=== PATIENT | male | born 1955 | race Caucasian/White ===

== ENCOUNTER 2017-02-21 11:56 | Inpatient (IN) | payer BC ==
--- NOTE | ~2017-02-21 | HP ---
History And Physical [id number] [place]. [address] NAME: KURT AMAYA : 55 STATUS : ADM IN [facility]#: [id number] AGE: 61 ADM/REG DATE : 02/21/17 MR#: [id number] REPORT SERV DATE: 02/21/17 DICTATED BY: ANDREWS DAWN JR. DATE: 02/21/17 REPORT STATUS : Draft TRANSCRIBED BY: ALBERT DATE: 02/21/17 DATE OF ADMISSION: 02/21/2017 CHIEF COMPLAINT: Chest pain. HISTORY OF PRESENT ILLNESS: Kurt Amaya is a 61-year-old white male, unemployed, smoker, and alcoholic, who developed substernal chest pain that was retrosternal burning with associated shortness of breath and malaise at 04:30 on 02/20/2017. He did not seek medical attention for unclear reasons. He did go to the [facility] this morning in an attempt to seek help as his chest pain persisted throughout the night and there he had an EKG performed revealing inferoposterior NJ with Q-wave formation in the inferior leads. The patient continued to have 4 or 5/10 precordial chest pain and a code STEMI was employed with a field call. On arrival, the patient had chest pain of 4/10 after 4 mg of IV morphine and he was taken urgently to the catheterization laboratory for emergent angiography and coronary intervention. He denied precordial chest pain prior to yesterday. He denied palpitations, syncope, or near syncope. PAST MEDICAL HISTORY: Prior history of dysthymia and anxiety. He denies hypertension, hyperlipidemia, prior TIA, or stroke. He denies diabetes or history of renal insufficiency. He denies peptic ulcer disease. ALLERGIES: DENIED. CURRENT MEDICATIONS: Wellbutrin. SOCIAL HISTORY: The patient is a half to one pack a day smoker. The patient drinks 2 L plus of Tequila weekly. He denies recreational drug abuse. FAMILY HISTORY: Negative for early or mid life vascular events. REVIEW OF SYSTEMS: He denies fever or chills, bleeding diathesis, sudden weight gain or weight loss. Remainder as in HPI or negative. PHYSICAL EXAMINATION: VITAL SIGNS: Blood pressure was 82/48, heart rate 70, respirations 16. GENERAL: Overweight male, who is uncomfortable and in mild distress. HEENT: Anicteric, no scleral injection, no oral lesions. NECK: No JVD, supple, no bruits. LUNGS: Hyperexpanded, mostly clear. CARDIOVASCULAR: Irregular rate and rhythm with distant heart sounds. ABDOMEN: Soft, nontender. Normoactive bowel sounds, no hepatosplenomegaly. EXTREMITIES: No clubbing, cyanosis or edema. SKIN: No visible rashes. NEURO/PSY: Normal affect, alert and oriented x 3. History And Physical [address] [address] NAME: KURT AMAYA : 55 STATUS : ADM IN [facility]#: [id number] AGE: 61 ADM/REG DATE : 02/21/17 MR#: [id number] REPORT SERV DATE: 02/21/17 DICTATED BY: ANDREWS DAWN JR. DATE: 02/21/17 REPORT STATUS : Draft TRANSCRIBED BY: ALBERT DATE: 02/21/17 MEDICAL DECISION MAKIN. Late presentation inferoposterior myocardial infarction. The patient continues to have significant precordial chest discomfort consistent with ongoing injury. The patient will be taken emergently to the catheterization laboratory for emergent coronary angiography and percutaneous intervention. The risks were verbally explained and verbally accepted. 2. Tobacco cessation. Counseling was initiated. 3. Mixed hyperlipidemia. We will initiate intensive statin therapy. 4. Alcohol abuse. The patient will need delirium tremens prophylaxis during this hospital stay. IVETH/ALBERT Andrews Dawn Jr., M.D. / [id number] CC: Andrews Dawn Jr., M.D.
--- NOTE | ~2017-02-21 | CN ---
Consultation Report [facility] [address] [place]. [address] NAME: RICKY LARIOS : 55 STATUS : ADM IN PAT#: [id number] AGE: 61 ADM/REG DATE : 02/21/17 MR#: [id number] REPORT SERV DATE: 02/22/17 DICTATED BY: RAHUL CALDWELL DATE: 02/22/17 REPORT STATUS : Draft TRANSCRIBED BY: MODL DATE: 02/22/17 INTERNAL MEDICINE CONSULTATION DATE OF CONSULTATION: 02/22/2017 REASON FOR CONSULTATION: Alcohol withdrawal management. HISTORY OF PRESENT ILLNESS: This is a 61-year-old obese male, who has a known history of dysthymia, anxiety, on Wellbutrin. He denied any history of hypertension, hyperlipidemia, prior stroke, or TIA. No known history of diabetes, renal insufficiency. He is a known alcoholic, drinking about two one-fifth of Tequila per week, and he stocks beer, and he praise for his friends to come over and drink with him, but only drinks about 2 L of Tequila per week, unclear proof. The patient has never had DTs before. Currently, does not have any withdrawal symptoms of agitation, diaphoresis, sweats, tachycardia, or hallucinations, understands, will receive Ativan, wants to stop drinking and smoking at this time. As a result, he is amenable to outpatient Librium and Ativan weaning protocol. Denies any fevers, chills, nausea, vomiting, did have diarrhea with a STEMI. No chest pain. Currently, no chest pressure. Some mild shortness of breath. The patient came in initially to Cardiac Service with a Code STEMI, with a signs of inferoposterior acute coronary syndrome. Troponin peaked above 120. LVEF thought to be 30% to 35%, had angiogram which showed moderate mid LAD stenosis, decreased systolic function, inferior akinesis, LVEDP 22. As a result, he had an Angiojet thrombectomy and bare metal stent placement to mid RCA. He had an echo that showed 30% to 35% decreased systolic function, moderate inferoseptal focal and apical hypokinesis, mildly dilated right ventricle, moderately decreased function. No valvulopathy was noted. The patient is doing well at this time. Dual antiplatelets with prasugrel and aspirin. Lipitor, lisinopril, and atorvastatin stated. PAST MEDICAL HISTORY: See above. PAST SURGICAL HISTORY: See above. ALLERGIES: NO KNOWN DRUG ALLERGIES. SOCIAL HISTORY: At least a [id number] history of active smoking, as stated about 2 L of Tequila per week, last drink was on . No drug use. Unemployed, lives at home. FAMILY HISTORY: Hypertension, at least one parent. Consultation Report [address] [place]. [address] NAME: RICKY LARIOS : 55 STATUS : ADM IN [facility]#: [id number] AGE: 61 ADM/REG DATE : 02/21/17 MR#: [id number] REPORT SERV DATE: 02/22/17 DICTATED BY: RAHUL CALDWELL DATE: 02/22/17 REPORT STATUS : Draft TRANSCRIBED BY: ALBERT DATE: 02/22/17 REVIEW OF SYSTEMS: Done, see HPI. Otherwise, negative. OBJECTIVE: VITAL SIGNS: 141/76, currently 109/73, pulse is 73, afebrile, respirations of 16. GENERAL: No acute distress. HEENT: PERRLA. No scleral icterus. CARDIOVASCULAR: Regular rate and rhythm. No murmur at this time. RESPIRATORY: Decreased breath sounds bibasilarly. ABDOMEN: Nontender, nondistended. Positive bowel sounds. EXTREMITIES: No edema. No ecchymosis. NEURO: A and O x4/4. GCS of 15. PSYCH: Mildly anxious. LABORATORIES: White count at 15.2 from 13.9, hemoglobin 13.8 from 13.3, platelets 214,000. Troponin 123 from 36. CPK 4300 from 3049. Sodium 138, 4.1 potassium, 104 chloride, BUN 17, 0.96 creatinine, glucose 122 from 142. IMPRESSION AND RECOMMENDATION: 1. Alcohol withdrawal prevention. 2. Smoking cessation. 3. Mild acute respiratory failure, hypoxia, likely clinical chronic obstructive pulmonary disease. 4. Systemic inflammatory response syndrome criteria. PLAN: Thank very much this consultation. Given his risk of DTs occurring more than 48 to 72 hours after last drink, last drink was last , we have empirically started on Librium 20 p.o. t.i.d. first dose now, then Ativan 1 to 2 mg IV q.2h p.r.n. for classic symptoms being agitation, tremors, hallucinations, and signs of tachyarrhythmia, unexplained as well as diaphoresis. The patient is amenable to stopping altogether as a result, will need Librium and Ativan likely as an outpatient. Placed him on Wellbutrin for smoking cessation as well and anxiety. Get a procalcitonin regarding his SIRS criteria. It is likely just reactive leukocytosis. Consider possible urine drug screen. If does not have any cocaine, could consider addition of beta blockade, but we would defer to his transfer controller. We will get an A1c regarding some hyperglycemia of 142, and Spiriva for clinical COPD if the patient is still oxygen dependent. All questions were answered. It took well over 60 minutes to do. Reference [employer] and [employer] and we will follow along with you. Okay to the floor. Consultation Report [id number] [place]. [address] NAME: RICKY LARIOS : 55 STATUS : ADM IN [facility]#: [id number] AGE: 61 ADM/REG DATE : 02/21/17 MR#: [id number] REPORT SERV DATE: 02/22/17 DICTATED BY: RAHUL CALDWELL DATE: 02/22/17 REPORT STATUS : Draft TRANSCRIBED BY: ALBERT DATE: 02/22/17 MADDI/ALBERT Rahul Caldwell DO / [id number] CC: Yunior Dawn Jr., M.D.
--- NOTE | ~2017-02-21 | DS ---
Discharge Summary [facility] [address] [facility] [place]. [address] NAME: RICKY LARIOS : 55 STATUS : DIS IN PAT#: [id number] AGE: 61 ADM/REG DATE : 02/21/17 MR#: [id number] REPORT SERV DATE: 03/06/17 DICTATED BY: ANDREWS DAWN JR. DATE: 03/05/17 REPORT STATUS : Draft TRANSCRIBED BY: ALBERT DATE: 03/05/17 Data Collection from hospitalization DISCHARGE DIAGNOSES: 1. Inferoposterior myocardial infarction. 2. Acute systolic congestive heart failure. 3. Mixed hyperlipidemia. 4. Dysrhythmia. 5. Nicotine dependence. 6. EtOH abuse. 7. Hypotension. 8. Anxiety. CONSULTATIONS: Ivan Lnych DO PROCEDURES PERFORMED: Cardiac catheterization and percutaneous coronary intervention on 02/21/2017. MEDICATIONS: Aspirin 81 mg daily, Lipitor 40 mg at bedtime, Wellbutrin XL 300 mg daily, Coreg 3.125 mg twice a day as instructed, Librium 10 mg twice a day as needed, Colace 100 mg twice a day, Prinivil 5 mg daily, Effient 10 mg daily, and Aldactone 12.5 mg daily. CONDITION AT DISCHARGE: Stable. DISPOSITION: The patient was discharged home on a low-sodium, low-cholesterol diet with activities as instructed. He would follow up with me on 04/08/2017. He would follow up with Dr. Terrie Mitchell as instructed. HOSPITAL COURSE: This is a 61-year-old man who is a smoker and is an alcoholic, who developed substernal chest pain that was retrosternal and burning, it was associated with shortness of breath and malaise, this occurred at 4:30 a.m. on 02/20/2017. He did not seek medical attention for unclear reasons. He did go to the [facility] on the morning of this admission in an attempt to seek help as his chest pain persisted throughout the night. He was found to have an EKG, which revealed inferoposterior myocardial infarction with Q-wave formation in the inferior leads. The patient continued to have 4 or 5/10 precordial chest pain and a code STEMI was employed with a field call. On arrival, the patient had chest pain of 4/10 after 4 mg of IV morphine and he was going to be taken emergently to the cardiac film laboratory technician to undergo emergent angiography and coronary intervention. He had denied any precordial chest pain prior to 02/20/2017. He was admitted at this time for further evaluation and treatment. Upon admission, he was taken to the cardiac film laboratory technician where he underwent the above-mentioned procedure. He tolerated this well, and there were no complications. The following day, he was seen by Dr. Ivan Lynch regarding alcohol withdrawal management. The patient denies any history of hypertension, hyperlipidemia, prior stroke, or TIA. He has no history of diabetes or renal insufficiency. He is a known alcoholic and drinks about two one sip of tequila per week. He said he drinks about 2 liters of Tequila per week, unclear proof. The patient had never had DTs before. Currently, he did not have any withdrawal symptoms of Discharge Summary [address] [address] NAME: RICKY LARIOS : 55 STATUS : DIS IN PAT#: [id number] AGE: 61 ADM/REG DATE : 02/21/17 MR#: [id number] REPORT SERV DATE: 03/06/17 DICTATED BY: ANDREWS DAWN JR. DATE: 03/05/17 REPORT STATUS : Draft TRANSCRIBED BY: ALBERT DATE: 03/05/17 agitation, diaphoresis, sweats, tachycardia, or hallucination. He was going to receive Ativan. He said he wants to stop drinking and smoking at this time. As a result, he was amenable to outpatient Librium and Ativan weaning protocol. He was started empirically on Librium and Ativan. It was felt that he would likely need this as an outpatient. He was placed on Wellbutrin for smoking cessation as well as anxiety. Procalcitonin level was going to be checked. Hemoglobin A1c was going to be obtained regarding some of his hyperglycemia. We would consider a possible urine drug screen if he did not have any cocaine, we could consider the addition of beta blockade, this would be deferred to the machine fitter. On 02/23/2017, he had no chest pain. His lungs were clear bilaterally. He does have an ejection fraction of 30%-35%. It was felt that he would need a LifeVest. Aldactone was added to his regimen. Bradycardia/AV block had resolved. Low-dose Coreg was added. Statin agent was continued. We encouraged him to stop smoking and drinking. The following day, he had some asymptomatic hypotension. He had no edema. Discharge planning was performed. He was in a sinus rhythm on telemetry. He had no bradycardia. Later in the day, lisinopril was increased. On 02/25/2017, he felt well. He was wanting to be discharged. His lungs were clear. Librium was going to be continued. He has had some dizziness which improved with decrease in Librium. LifeVest was going to be applied. Discharge instructions were given. Due to his improved and stable condition, he was discharged home with the above-stated instructions. Information collected by: Rina Damico I submit the above information as my discharge summary. ALYSHA/ALBERT Andrews Dawn Jr., M.D. / [id number] CC: Andrews Dawn Jr., M.D.
[~2017-02-21 11:56] MED LIST: *DENIES; MELA3 PO; MULTIVITAMI1 PO; PERCOCET1 TA4 PO; TUMERIC; WELLXL300
[2017-02-21 12:13] LABS: CREATININE 0.9 MG/DL (0.70-1.30)
[2017-02-21 12:14] LABS: BASOPHILS 0.1 %; BASOPHILS ABSOLUTE 0.01 10/3/uL (0.0-0.16); EOSINOPHILS 0 %; HEMOGLOBIN 14.1 g/dL (13.6-17.8); IMMATURE GRANULOCYTES 0.5 %; IMMATURE GRANULOCYTES ABSOLUTE 0.08 10/3/uL (0.0-0.11); LYMPHOCYTES 7.7 %; MEAN CORPUS HGB CONC 33.6 g/dL (32.0-36.0); MEAN CORPUSCULAR HEMOGLOB 30.2 pg (26.0-34.0); MEAN CORPUSCULAR VOLUME 89.9 fL (80-100); MEAN PLATELET VOLUME 10.1 fL (9.2-13.0); MONOCYTES 8.7 %; MONOCYTES ABSOLUTE 1.36 10/3/uL (0.21-1.20); NEUTROPHILS ABSOLUTE 13.03 10/3/uL (2.02-8.40); PLATELET COUNT 234 10/3/uL (150-400); RBC DISTRIBUTION WIDTH 14.1 % (12.0-16.0); RED CELL COUNT 4.67 10/6/uL (4.7-6.1)
[2017-02-21 12:17] LABS: MANUAL DIFF NO %; WHITE BLOOD CELLS 15.7 10/3/uL (4.5-10.5)
[2017-02-21 12:27] LABS: INTERNATIONAL NORMAL RATI 1.1 UNITS (-); PROTIME (NOT ORD) 13.9 SEC (12.0-14.5)
[2017-02-21 12:29] LABS: CALCIUM, SERUM 8.9 MG/DL (8.5-10.4); CHLORIDE, SERUM 103 MMOL/L (96-112); CREATININE 1.07 MG/DL (0.70-1.30); GFR AFRICAN AMERICAN 86 ML/MIN (>=60); GFR NON AFRICAN AMERICAN 75 ML/MIN (>=60); POTASSIUM, SERUM 4.2 MMOL/L (3.5-5.3); SODIUM, SERUM 138 MMOL/L (135-148)
[2017-02-21 12:30] LABS: CO2 (CARBON DIOXIDE) 22 MMOL/L (24-34)
[2017-02-21 12:31] LABS: BUN (BLOOD UREA NITROGEN) 21 MG/DL (6-23); CHEST PAIN PROFILE TAT 0 Hrs 22 Mins; GLUCOSE, SERUM 142 MG/DL (60-99)
[2017-02-21 12:38] LABS: PARTIAL THROMBO TIME > 150.0 SEC (22.5-37.2)
[2017-02-21 15:08] LABS: CPK 3049 U/L (0-200)
[2017-02-21 15:22] LABS: CKMB INDEX (NOT ORD) 10.7
[2017-02-21 17:20] LABS: BASOPHILS 0.1 %; BASOPHILS ABSOLUTE 0.01 10/3/uL (0.0-0.16); EOSINOPHILS 0 %; HEMATOCRIT 40.4 % (40.0-51.0); HEMOGLOBIN 13.3 g/dL (13.6-17.8); IMMATURE GRANULOCYTES 0.4 %; IMMATURE GRANULOCYTES ABSOLUTE 0.05 10/3/uL (0.0-0.11); LYMPHOCYTES 11.9 %; LYMPHOCYTES ABSOLUTE 1.65 10/3/uL (0.67-4.30); MEAN CORPUS HGB CONC 32.9 g/dL (32.0-36.0); MEAN CORPUSCULAR HEMOGLOB 29.8 pg (26.0-34.0); MEAN CORPUSCULAR VOLUME 90.4 fL (80-100); MEAN PLATELET VOLUME 10.5 fL (9.2-13.0); MONOCYTES 10.5 %; MONOCYTES ABSOLUTE 1.46 10/3/uL (0.21-1.20); NEUTROPHILS 77.1 %; NEUTROPHILS ABSOLUTE 10.68 10/3/uL (2.02-8.40); PLATELET COUNT 230 10/3/uL (150-400); RBC DISTRIBUTION WIDTH 14.3 % (12.0-16.0); RED CELL COUNT 4.47 10/6/uL (4.7-6.1); WHITE BLOOD CELLS 13.9 10/3/uL (4.5-10.5)
[2017-02-21 17:25] LABS: MANUAL DIFF NO %
[2017-02-21 20:21] LABS: BASOPHILS 0.1 %; BASOPHILS ABSOLUTE 0.01 10/3/uL (0.0-0.16); EOSINOPHILS 0.1 %; EOSINOPHILS ABSOLUTE 0.01 10/3/uL (0.0-0.53); HEMATOCRIT 42.3 % (40.0-51.0); HEMOGLOBIN 13.6 g/dL (13.6-17.8); IMMATURE GRANULOCYTES 0.3 %; IMMATURE GRANULOCYTES ABSOLUTE 0.05 10/3/uL (0.0-0.11); LYMPHOCYTES 10.9 %; LYMPHOCYTES ABSOLUTE 1.72 10/3/uL (0.67-4.30); MEAN CORPUS HGB CONC 32.2 g/dL (32.0-36.0); MEAN CORPUSCULAR HEMOGLOB 29.6 pg (26.0-34.0); MEAN PLATELET VOLUME 10.4 fL (9.2-13.0); MONOCYTES 10.4 %; MONOCYTES ABSOLUTE 1.64 10/3/uL (0.21-1.20); NEUTROPHILS 78.2 %; NEUTROPHILS ABSOLUTE 12.35 10/3/uL (2.02-8.40); PLATELET COUNT 228 10/3/uL (150-400); RBC DISTRIBUTION WIDTH 14.4 % (12.0-16.0); WHITE BLOOD CELLS 15.8 10/3/uL (4.5-10.5)
[2017-02-21 20:23] LABS: MANUAL DIFF NO %
[2017-02-21 21:02] LABS: CK-MB 447.5 NG/ML
[2017-02-21 21:05] LABS: CKMB INDEX (NOT ORD) 7.9
[2017-02-22 05:16] LABS: BASOPHILS 0.1 %; BASOPHILS ABSOLUTE 0.02 10/3/uL (0.0-0.16); EOSINOPHILS 0.1 %; EOSINOPHILS ABSOLUTE 0.01 10/3/uL (0.0-0.53); HEMATOCRIT 41.5 % (40.0-51.0); HEMOGLOBIN 13.8 g/dL (13.6-17.8); IMMATURE GRANULOCYTES 0.3 %; IMMATURE GRANULOCYTES ABSOLUTE 0.05 10/3/uL (0.0-0.11); LYMPHOCYTES 13.9 %; LYMPHOCYTES ABSOLUTE 2.12 10/3/uL (0.67-4.30); MANUAL DIFF NO %; MEAN CORPUS HGB CONC 33.3 g/dL (32.0-36.0); MEAN CORPUSCULAR HEMOGLOB 30.3 pg (26.0-34.0); MEAN CORPUSCULAR VOLUME 91.2 fL (80-100); MEAN PLATELET VOLUME 10.3 fL (9.2-13.0); MONOCYTES 11.8 %; MONOCYTES ABSOLUTE 1.79 10/3/uL (0.21-1.20); NEUTROPHILS 73.8 %; NEUTROPHILS ABSOLUTE 11.22 10/3/uL (2.02-8.40); PLATELET COUNT 214 10/3/uL (150-400); RBC DISTRIBUTION WIDTH 14.1 % (12.0-16.0); RED CELL COUNT 4.55 10/6/uL (4.7-6.1); WHITE BLOOD CELLS 15.2 10/3/uL (4.5-10.5)
[2017-02-22 05:55] LABS: CALCIUM, SERUM 8.8 MG/DL (8.5-10.4); CHLORIDE, SERUM 104 MMOL/L (96-112); CHOLESTEROL 167 MG/DL (< 200); CK-MB 217.6 NG/ML; CO2 (CARBON DIOXIDE) 24 MMOL/L (24-34); CPK 4393 U/L (0-200); CREATININE 0.96 MG/DL (0.70-1.30); GFR AFRICAN AMERICAN 98 ML/MIN (>=60); GFR NON AFRICAN AMERICAN 85 ML/MIN (>=60); GLUCOSE, SERUM 122 MG/DL (60-99); HDL CHOLESTEROL 56 MG/DL (> 39); LDL CHOLESTEROL 74 MG/DL (< 130); NON-HDL CHOLESTEROL 111 MG/DL (< 160); POTASSIUM, SERUM 4.1 MMOL/L (3.5-5.3); SODIUM, SERUM 138 MMOL/L (135-148); TRIGLYCERIDE 188 MG/DL (< 150)
[2017-02-22 05:57] LABS: BUN (BLOOD UREA NITROGEN) 17 MG/DL (6-23)
[2017-02-22 12:21] LABS: CK-MB 121.8 NG/ML
[2017-02-22 12:22] LABS: CKMB INDEX (NOT ORD) 3.5
[2017-02-22 14:44] LABS: AMPHETAMINES (NOT ORD) NEG (NEG); BARBITURATES (NOT ORDERED NEG (NEG); BENZODIAZEPINES (NOT ORD) NEG (NEG); CANNABINOIDS (THC) NEG (NEG); COCAINE (NOT ORDERED) NEG (NEG); OPIATES POS (NEG); PHENCYCLIDINE(PCP) NEG (NEG); TRICYCLICS NEG (NEG)
[2017-02-22 14:50] LABS: PHOSPHORUS, SERUM 2.5 MG/DL (2.5-4.5)
[2017-02-22] MEDS ORDERED: WELLXL300 PO (14:52)
[2017-02-23 06:25] LABS: BASOPHILS 0.2 %; BASOPHILS ABSOLUTE 0.02 10/3/uL (0.0-0.16); EOSINOPHILS 0.3 %; EOSINOPHILS ABSOLUTE 0.03 10/3/uL (0.0-0.53); HEMATOCRIT 39.5 % (40.0-51.0); HEMOGLOBIN 13.2 g/dL (13.6-17.8); IMMATURE GRANULOCYTES 0.3 %; IMMATURE GRANULOCYTES ABSOLUTE 0.04 10/3/uL (0.0-0.11); LYMPHOCYTES 16.8 %; LYMPHOCYTES ABSOLUTE 1.97 10/3/uL (0.67-4.30); MEAN CORPUS HGB CONC 33.4 g/dL (32.0-36.0); MEAN CORPUSCULAR HEMOGLOB 30.3 pg (26.0-34.0); MEAN CORPUSCULAR VOLUME 90.6 fL (80-100); MEAN PLATELET VOLUME 10.6 fL (9.2-13.0); MONOCYTES 12.8 %; NEUTROPHILS 69.6 %; NEUTROPHILS ABSOLUTE 8.15 10/3/uL (2.02-8.40); PLATELET COUNT 203 10/3/uL (150-400); RBC DISTRIBUTION WIDTH 13.8 % (12.0-16.0); RED CELL COUNT 4.36 10/6/uL (4.7-6.1); WHITE BLOOD CELLS 11.7 10/3/uL (4.5-10.5)
[2017-02-23 06:26] LABS: MANUAL DIFF NO %
[2017-02-23 06:40] LABS: A/G RATIO 1.1 (0.7-1.9); ALBUMIN 3.3 G/DL (3.5-5.0); ALKALINE PHOSPHATASE 81 U/L (45-117); BUN (BLOOD UREA NITROGEN) 15 MG/DL (6-23); CALCIUM, SERUM 8.8 MG/DL (8.5-10.4); CHLORIDE, SERUM 103 MMOL/L (96-112); CO2 (CARBON DIOXIDE) 24 MMOL/L (24-34); CREATININE 0.96 MG/DL (0.70-1.30); GFR AFRICAN AMERICAN 98 ML/MIN (>=60); GFR NON AFRICAN AMERICAN 85 ML/MIN (>=60); GLOBULIN 3.1 G/DL (2.5-4.1); GLUCOSE, SERUM 98 MG/DL (60-99); PHOSPHORUS, SERUM 2.5 MG/DL (2.5-4.5); POTASSIUM, SERUM 3.7 MMOL/L (3.5-5.3); SGOT(AST) 221 U/L (5-40); SGPT(ALT) 72 U/L (5-65); SODIUM, SERUM 138 MMOL/L (135-148); TOTAL BILIRUBIN 0.6 MG/DL (0-1.2); TOTAL PROTEIN 6.4 G/DL (6.0-8.5)
[2017-02-23 07:13] LABS: PROCALCITONIN 0.05 ng/mL (<0.5)
[2017-02-24 05:32] LABS: BASOPHILS 0.3 %; BASOPHILS ABSOLUTE 0.03 10/3/uL (0.0-0.16); EOSINOPHILS 0.7 %; EOSINOPHILS ABSOLUTE 0.08 10/3/uL (0.0-0.53); HEMOGLOBIN 11.7 g/dL (13.6-17.8); IMMATURE GRANULOCYTES 0.4 %; IMMATURE GRANULOCYTES ABSOLUTE 0.04 10/3/uL (0.0-0.11); LYMPHOCYTES 17.2 %; LYMPHOCYTES ABSOLUTE 1.86 10/3/uL (0.67-4.30); MEAN CORPUS HGB CONC 33.1 g/dL (32.0-36.0); MEAN CORPUSCULAR HEMOGLOB 29.7 pg (26.0-34.0); MEAN CORPUSCULAR VOLUME 89.6 fL (80-100); MEAN PLATELET VOLUME 10.5 fL (9.2-13.0); MONOCYTES 13.9 %; NEUTROPHILS 67.5 %; PLATELET COUNT 211 10/3/uL (150-400); RBC DISTRIBUTION WIDTH 13.8 % (12.0-16.0); RED CELL COUNT 3.94 10/6/uL (4.7-6.1); WHITE BLOOD CELLS 10.8 10/3/uL (4.5-10.5)
[2017-02-24 05:33] LABS: BUN (BLOOD UREA NITROGEN) 17 MG/DL (6-23); CALCIUM, SERUM 8.6 MG/DL (8.5-10.4); CHLORIDE, SERUM 102 MMOL/L (96-112); CO2 (CARBON DIOXIDE) 27 MMOL/L (24-34); CREATININE 0.99 MG/DL (0.70-1.30); GFR AFRICAN AMERICAN 95 ML/MIN (>=60); GFR NON AFRICAN AMERICAN 82 ML/MIN (>=60); GLUCOSE, SERUM 92 MG/DL (60-99); POTASSIUM, SERUM 3.8 MMOL/L (3.5-5.3); SODIUM, SERUM 139 MMOL/L (135-148)
[2017-02-24 05:35] LABS: PHOSPHORUS, SERUM 3.9 MG/DL (2.5-4.5)
[2017-02-24 05:42] LABS: HEMATOCRIT 35.3 % (40.0-51.0); MANUAL DIFF NO %
[2017-02-25 07:09] LABS: BASOPHILS 0.3 %; BASOPHILS ABSOLUTE 0.03 10/3/uL (0.0-0.16); EOSINOPHILS 1.2 %; EOSINOPHILS ABSOLUTE 0.11 10/3/uL (0.0-0.53); HEMATOCRIT 36.3 % (40.0-51.0); HEMOGLOBIN 12.5 g/dL (13.6-17.8); IMMATURE GRANULOCYTES 0.2 %; IMMATURE GRANULOCYTES ABSOLUTE 0.02 10/3/uL (0.0-0.11); LYMPHOCYTES 19.6 %; LYMPHOCYTES ABSOLUTE 1.73 10/3/uL (0.67-4.30); MEAN CORPUS HGB CONC 34.4 g/dL (32.0-36.0); MEAN CORPUSCULAR HEMOGLOB 30.7 pg (26.0-34.0); MEAN CORPUSCULAR VOLUME 89.2 fL (80-100); MEAN PLATELET VOLUME 10.2 fL (9.2-13.0); MONOCYTES 13.2 %; MONOCYTES ABSOLUTE 1.17 10/3/uL (0.21-1.20); NEUTROPHILS 65.5 %; NEUTROPHILS ABSOLUTE 5.78 10/3/uL (2.02-8.40); PLATELET COUNT 229 10/3/uL (150-400); RBC DISTRIBUTION WIDTH 13.4 % (12.0-16.0); RED CELL COUNT 4.07 10/6/uL (4.7-6.1); WHITE BLOOD CELLS 8.8 10/3/uL (4.5-10.5)
[2017-02-25 07:10] LABS: MANUAL DIFF NO %
[2017-02-25 07:21] LABS: BUN (BLOOD UREA NITROGEN) 16 MG/DL (6-23); CALCIUM, SERUM 8.8 MG/DL (8.5-10.4); CHLORIDE, SERUM 104 MMOL/L (96-112); CO2 (CARBON DIOXIDE) 26 MMOL/L (24-34); CREATININE 0.96 MG/DL (0.70-1.30); GFR AFRICAN AMERICAN 98 ML/MIN (>=60); GFR NON AFRICAN AMERICAN 85 ML/MIN (>=60); GLUCOSE, SERUM 85 MG/DL (60-99); PHOSPHORUS, SERUM 3.8 MG/DL (2.5-4.5); POTASSIUM, SERUM 3.9 MMOL/L (3.5-5.3); SODIUM, SERUM 139 MMOL/L (135-148)
[2017-02-25] MEDS ORDERED: ASAB PO (12:28)
[2017-02-25] MEDS ORDERED: LIPITOR40 PO (12:29)
[2017-02-25] MEDS ORDERED: COREG3 PO (12:35)
[2017-02-25] MEDS ORDERED: L10 PO (12:36)
[2017-02-25] MEDS ORDERED: DSS PO (12:37)
[2017-02-25] MEDS ORDERED: PRIN5 PO (12:38)
[2017-02-25] MEDS ORDERED: SPIRO25 PO (12:39)
[2017-02-25] MEDS ORDERED: EFFIENT10 PO (12:39)
== END 2017-02-25 18:19 | disposition home or self-care (01) | DRG 248 ==
LOC: SSU2 11:56 → CCU 13:40 → 6NO 02-22 15:33
PROVIDERS: Internal Medicine; Internal Medicine Cardiovascular Disease
PROC: 02703DZ Dilation of Coronary Artery, One Artery with Intraluminal Device, Percutaneous Approach (ICD-10-PCS; principal; 2017-02-21)
PROC: 02C03ZZ Extirpation of Matter from Coronary Artery, One Artery, Percutaneous Approach (ICD-10-PCS; 2017-02-21)
PROC: 4A023N7 Measurement of Cardiac Sampling and Pressure, Left Heart, Percutaneous Approach (ICD-10-PCS; 2017-02-21)
PROC: B2111ZZ Fluoroscopy of Multiple Coronary Arteries using Low Osmolar Contrast (ICD-10-PCS; 2017-02-21)
PROC: B2151ZZ Fluoroscopy of Left Heart using Low Osmolar Contrast (ICD-10-PCS; 2017-02-21)
DX: I21.11 ST elevation (STEMI) myocardial infarction involving right coronary artery (principal); J96.01 Acute respiratory failure with hypoxia; I44.2 Atrioventricular block, complete; I25.10 Atherosclerotic heart disease of native coronary artery without angina pectoris; F17.210 Nicotine dependence, cigarettes, uncomplicated; I25.5 Ischemic cardiomyopathy; F10.20 Alcohol dependence, uncomplicated; F41.9 Anxiety disorder, unspecified
CPT/HCPCS: 71010; 80048; 80053; 80061; 80305; 82533; 82550; 82553; 82565; 82962; 83036; 83735; 84100; 84132; 84145; 84295; 84484; 85025; 85610; 85730; 87641; 92941; 92973; 93005; 93458; 99152; 99153; A9270-GY; C1725; C1757; C1769; C1876; C1887; C1894; C8929; J0583; J1327; J1652; J2250; J3010; Q9957; Q9967